=== PATIENT | female | born 1995 | race Caucasian/White ===

== ENCOUNTER 2021-04-27 15:27 | Emergency (ER) | payer OTHER, MEDICAID ==
[~2021-04-27] VITALS: Ht 160 cm; Wt 68.0 kg
[2021-04-27] MEDS ORDERED: SERTRALINE HCL100 MG PO (15:41)
[2021-04-27] MEDS ORDERED: LAMOTRIGINE250 MG PO (15:41)
[2021-04-27] MEDS ORDERED: VANACOF DM LIQ240 ML PO (15:41)
[2021-04-27] MEDS ORDERED: HYDROXYZINE HCL25 M2 PO (15:42)
[2021-04-27 17:58] LABS: ABSOLUTE EOSINOPHILS 0.1 thou/uL (0.0-0.7); ABSOLUTE LYMPHOCYTES 2.5 thou/uL (0.8-5.3); ABSOLUTE MONOCYTES 0.4 thou/uL (0.0-1.2); ABSOLUTE NEUTROPHILS 1.7 thou/uL (1.6-8.1); EOSINOPHILS 1.8 %; HEMATOCRIT 38.8 % (37.0-47.0); LYMPHOCYTES 51.6 %; MCHC 33.6 g/dL (28.0-37.0); MCV 92.4 fL (80.0-100.0); MPV 7.2 fl. (7.2-11.1); NUCLEATED RBCS 0 /100WBC; PLATELET COUNT* 187 thou/uL (150-400); POLYS 36.6 %; RBC 4.21 mil/uL (4.20-5.00); RDW-CV 13.5 % (10.5-14.5); WBC 4.7 thou/uL (4.0-11.0)
[2021-04-27 18:07] LABS: CALCIUM 8.2 mg/dL (8.5-10.1); CREATININE 0.7 mg/dL (0.6-1.3)
[2021-04-27 18:11] LABS: ALBUMIN 3.3 g/dL (3.4-5.0); TOTAL BILIRUBIN 0.2 mg/dL (<0.1-1.0); TOTAL PROTEIN 6.4 g/dL (6.4-8.2)
[2021-04-27 19:27] VITALS: BP 106/61
--- NOTE | 2021-04-28 09:40 | EKG ---
[place] [address] ELECTROCARDIOGRAM REPORT Name: TARAN SZYMANSKI Room: [facility]#: [id number] Admission: 04/27/21 Attend Phys: Discharge: 04/27/21 Date of : 89 Date of Service: 04/27/21 1532 Report #: [id number] THIS REPORT FOR: //name// [facility] ED Test Date: 2021-04-27 Test Time: 15:32:19 Pat Name: TARAN SZYMANSKI Department: Room: Gender: F Director Fundraising: : 1995 Requested By: Donnie Cotto Order Number: [id number] MD: Daniel Love Measurements Intervals [place] Rate: 72 P: 44 TN: 168 QRS: 46 QRSD: 81 T: 30 QT: 376 QTc: 412 Interpretive Statements Sinus rhythm Low voltage, precordial leads No previous ECG available for comparison Electronically Signed On 04-28-2021 9:40:42 [employer] by Daniel Love [email or web address] <ELECTRONICALLY SIGNED> By: Daniel Love MD, [facility] 04/28/21 0940 153 31 Daniel Love MD, [facility] /EPI
== END 2021-04-27 19:28 | disposition home or self-care (01) ==
LOC: M.ERS 15:27
PROVIDERS: Physician Assistant Medical
DX: R07.89 Other chest pain (principal); K92.1 Melena; R10.13 Epigastric pain; J45.909 Unspecified asthma, uncomplicated; Z91.048 Other nonmedicinal substance allergy status; Z79.899 Other long term (current) drug therapy